=== PATIENT | female | born 1990 | race Caucasian/White ===

== ENCOUNTER 2021-08-11 15:02 | Emergency (ER) | payer OTHER ==
[~2021-08-11] VITALS: Ht 162.6 cm; Wt 63.5 kg
[2021-08-11 15:09] VITALS: BP 118/60
[2021-08-11] MEDS ORDERED: FLEXERIL PO (16:01)
[2021-08-11] MEDS ORDERED: IBU800 MG PO (16:01)
[2021-08-11] MEDS ORDERED: CEPHALEXIN500 MG PO (16:01)
== END 2021-08-11 16:25 | disposition home or self-care (01) ==
LOC: ER 15:02
DX: S90.31XA Contusion of right foot, initial encounter (principal); L03.115 Cellulitis of right lower limb; Z98.51 Tubal ligation status; W04.XXXA Fall while being carried or supported by other persons, initial encounter; Y93.89 Activity, other specified; Y92.89 Other specified places as the place of occurrence of the external cause; Y99.8 Other external cause status